=== PATIENT | male | born 1970 | race Caucasian/White ===

== ENCOUNTER 2016-11-04 12:49 | Emergency (ER) | payer MEDICARE ==
[~2016-11-04] VITALS: Ht 170.2 cm; Wt 156.3 kg
[2016-11-04] MEDS ORDERED: SODIUM CHLORIDE FLUSH 3 ML SYR IV PRN (13:15)
[2016-11-04] MEDS ORDERED: SODIUM CHLORIDE FLUSH 10 ML SYR IV PRN (13:15)
[2016-11-04 15:21] LABS: BASOPHILS % (AUTO) 1 % (0-2); EOSINOPHILS # (AUTO) 0.2 10^3uL; EOSINOPHILS % (AUTO) 3 % (0-4); LYMPHOCYTES # (AUTO) 1.5 X10^3; MEAN CORPUSCULAR HEMOGLOBIN 30.8 PG (26.0-34.0); MEAN CORPUSCULAR HGB CONC 33.5 g/dL (31.0-37.0); MEAN CORPUSCULAR VOLUME 92 FL (80-100); MEAN PLATELET VOLUME 9.9 FL (6.0-9.5); MONOCYTES # (AUTO) 0.5 X10^3; MONOCYTES % (AUTO) 9 % (3-11); NEUTROPHILS # (AUTO) 3.9 X10^3; NEUTROPHILS % (AUTO) 63 % (51-67); PLATELET COUNT 283 10^3uL (150-450); WHITE BLOOD COUNT 6.09 10^3uL (4.0-11.0)
[2016-11-04 15:40] LABS: ALBUMIN 4.3 g/dL (3.4-5.0); ALKALINE PHOSPHATASE 75 U/L (38-126); ANION GAP 17.4 MEQ/L (3-15); BUN/CREATININE RATIO 13 (10-20); CALCULATED IONIZED CALCIUM 3.7 mg/dL (3.8-4.6); CREATINE KINASE 97 U/L (55-170); MAGNESIUM* 2.2 mg/dL (1.6-2.3); TOTAL PROTEIN 8.6 g/dL (6.4-8.5)
[2016-11-04] MEDS ORDERED: LEVALBUTEROL 1.25 MG/0.5 ML (XOPENEX) NEB INH ONE (17:40)
[2016-11-04] MEDS ORDERED: SODIUM CHLORIDE 0.9% NEB SOLN 3 ML VIAL ONE (17:56)
[2016-11-04] MEDS ORDERED: [UNRECOGNIZED DRUG - OTHER] INH ONE (18:45)
[2016-11-04] MEDS ORDERED: methylPREDNISolone 125 MG (Solu-MEDROL) VIAL IV ONE (18:45)
[2016-11-04] MEDS ORDERED: AMOXICILLIN/CLAVULANATE 875MG-125MG (AUGMENTIN) TABLET PO ONE (18:45)
--- NOTE | 2016-11-04 18:49 | NUR ---
Report given to Melissa ROLLINS who will assume care of [email or web address]
[2016-11-04 19:10] VITALS: BP 135/90
== END 2016-11-04 19:11 | disposition home or self-care (01) ==
LOC: EDUNIT# 12:49 → ED 12:53
DX: J44.9 Chronic obstructive pulmonary disease, unspecified (principal); R06.09 Other forms of dyspnea; I27.2 Other secondary pulmonary hypertension; Z87.891 Personal history of nicotine dependence
CPT/HCPCS: 36415; 71020; 71275; 80053; 80164; 82550; 82553; 83735; 83880; 84443; 84484; 85025; 85379; 85610; 85730; 93005; 94640; 96374; 99285; A9270; J2930; Q9967; 93010